=== PATIENT | male | born 1970 ===

== ENCOUNTER → 2023-09-01 06:18 | Day surgery (SDC) | payer BC, SELFPAY ==
[2023-09-01 07:45] LABS: Glucose - Point of Care 136 mg/dl (70-99)
== END ==
LOC: GI 06:18
PROVIDERS: ATTENDING PHYSICIAN Internal Medicine Gastroenterology
DX: Z12.11 Encounter for screening for malignant neoplasm of colon (principal); K57.30 Diverticulosis of large intestine without perforation or abscess without bleeding; K64.8 Other hemorrhoids; D12.2 Benign neoplasm of ascending colon
CPT/HCPCS: 45385; 88305; 82962